=== PATIENT | male | born 1990 | race Caucasian/White ===

== ENCOUNTER 2023-01-03 19:59 | Emergency (ER) | payer SELFPAY ==
[2023-01-03] MEDS ORDERED: ONDANSETRON ODT 4 MG Prepack 2 TL STA (20:18)
--- NOTE | 2023-01-03 20:19 | ED Physician Documentation ---
PD HPI NVD - Stated complaint Stated Complaint: NAUSEA, STOMACH PX - Chief complaint Chief Complaint: Abd Pain - History obtained from History obtained from: Patient - Additonal information Additional information: 32-year-old male with no significant past medical history presents for nausea, vomiting x1 day. Patient was seen at the [facility], however the doctor was not in-house and nurses recommended that he be evaluated by a physician, so he is here today. 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 Review of Systems Constitutional: denies: Fever, Chills Cardiac: denies: Chest pain / pressure, Palpitations, Calf pain Respiratory: denies: Dyspnea, Cough, Wheezing GI: reports: Nausea, Vomiting. denies: Abdominal Pain Neurologic: denies: Generalized weakness, Focal weakness, Numbness PD PAST MEDICAL HISTORY - Present Medications Home Medications: Ambulatory Orders Medication Instructions Recorded Confirmed Ondansetron Odt [Zofran] 4 mg TL Q6H PRN #30 tablet 01/03/23 - Allergies Allergies/Adverse Reactions: Allergies Allergy/AdvReac Type Severity Reaction Status Date / Time No Known Drug Allergies Allergy Verified 01/03/23 20:14 PD ED PE NORMAL - Vitals Vital signs reviewed: Yes - General General: Alert and oriented X 3, No acute distress, Well developed/nourished - HEENT HEENT: Atraumatic, PERRL, EOMI - Neck Neck: Supple, no meningeal sign - Respiratory Respiratory: No respiratory distress - Abdomen Abdomen: Soft, Non tender, Non distended - Derm Derm: Normal color, Warm and dry, No rash - Extremities Extremities: No deformity, No tenderness to palpate, Normal ROM s pain, No edema - Neuro Neuro: Alert and oriented X 3, 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 Patient states he feels overall well at this time and denies abdominal pain. Physical exam is unremarkable, patient is overall well-hydrated and nontoxic in appearance. No indication for any labs or imaging at this time. Patient was given a prescription for Zofran, counseled on brat diet and importance of fluid hydration. Note for work provided Departure - Departure Disposition: 01 Home, Self Care Clinical Impression: Vomiting Qualifiers: Vomiting type: unspecified Nausea presence: with nausea Qualified Code(s): R11.2 - Nausea with vomiting, unspecified Condition: Stable Instructions: ED Nausea Vomiting Prescriptions: Ondansetron Odt [Zofran] 4 mg TL Q6H PRN #30 tablet PRN Reason: Nausea / Vomiting Forms: PCP List
[2023-01-03 20:22] VITALS: BP 149/94; O2SAT 100
== END 2023-01-03 20:56 | disposition home or self-care (01) ==
LOC: ED 19:59
DX: R11.2 Nausea with vomiting, unspecified (principal)
CPT/HCPCS: 99282; 99283